=== PATIENT | male | born 1960 | race Caucasian/White ===

== ENCOUNTER 2025-03-11 09:40 | Outpatient (OUT) | payer MEDICARE, SELFPAY ==
--- OUTSIDE RECORDS SUMMARY | 2025-02-26 10:57 | XMS_ITS | Continuity of Care Document ---
Author Organization [facility] Address [address] [place] [address] Phone Care Team Providers Care Triage Register Nurse Name Role Phone Provider, Outside Primary Care Provider Ashley BainC Attending Provider Mike Hughes DO Primary Care Provider Care Teams Patient Care Team Team Status: Active Member Role Status Dates Mike Hughes DO Primary Care Provider Active Visit Care Team Team Status: Inactive Member Role Status Dates Outside Provider Primary Care Provider Active St art: January 07, 2025 End: January 07, 2025Macrina Fonseca ProviderActiveStart: January 07, 2025 End: January 07, 2025 Visit Care Team Team Status: Inactive Member Role Status Dates ALEJANDRO Fonseca Attending Provider Active Start: January 21, 2025 End: January 21, 2025Janell Tracy Care ProviderActiveStart: January 21, 2025 End: January 21, 2025 Visit Care Team Team Status: Inactive Member Role Status Dates Mike Hughes DO Primary Care Provider Active Start: February 03, 2025 End: February 03, 2025Macrina Fonseca ProviderActiveStart: February 03, 2025 End: February 03, 2025 Patient Care Team Team Status: Inactive Member Role Status Dates Mike Hughes DO Primary Care Provider Active Start: February 26, 2025 End: February 26, 2025Macrina Fonseca ProviderActiveStart: February 26, 2025 End: October 8th, 2025 Chief Complaint and Reason for Visit Chief Complaint Admit Date ref by Mike Hughes for VV w/ pain Aug ust 2024 12:06pm I83.813 January 21, 2025 10:53am to go over FF; FF done [place] [facility] February 03, 2025 9:44am sclero lt leg first February 26, 2025 2: 09pm Reason for Visit Admit Date Symptomatic varicose veins of both lower extremities January 07, 2025 12:06pm Telangiectasia January 07, 2025 12 :06pm Lower extremity edema February 03 9:44am Symptomatic varicose veins of both lower extremities February 03, 2025 9:44am Telangiectasia February 03, 2025 9:44am Venous insufficiency February 03 9:44am Allergies, Adverse Reactions, Alerts Allergen Type Severity Reaction Last Updated Verified Status amoxicillin Allergy Unknown Rash February 03, 2025 10:16am Yes Active contrast dy Allergy Unknown ckd January 07, 2025 11:37am No Active Social History Smoking Status Status Start Date End Date Date of Observa tion Never smoked tobacco (finding) January 07, 2025 11:37am Observation Status Observation Response Date of Response Legal Sex Male (finding) [facility] 1960 Problems Active Problems Medical Problem Onset Date Status Lower extremity edema Unknown Active Symptomatic varicose veins of both lower extremi ties Unknown Active Telangiectasia Unknown Active Venous insufficiency Unknown Active Medications Medication Status Dose Units Route Directions Qty Days St art Date Stop Date End Date Instructions Adherence Atorvastatin 20 mg tablet Active 20 MG PO Daily January 07, 2025 12:00amUnknownSertraline 100 mg osxpnnVywaiw920XXSJEjpqeNrrtbp 2024 12:00amUnknownLosartan-Hydrochlorothiazide 100-25 mg znypgjXzmpyk6GCY PODailyAugu2024 12:00amUnknownTamsulosin 0.4 mg capsuleActiveMGPOAugust 2024 12:00amUnknownAtenolol 50 mg kzaybmFwbfvn79ZFVCFvoyjIvmtmu 2024 12:00amUnknownAspirin 325 mg qpkkavWrodvdrvkuxi642ODDWMaxgu 6 hours as needed January 07, 2025 12:00amAugu2024 11:38amAspirin 81 mg xmkgqpAsokjr80EA PODailyAugust 2024 12:00amUnknownSildenafil 25 mg bnpvpdIiekss15JGXXMcrsm as neededAugust 2024 12:00amadminister 30 minutes to 4 hours before activityUnknownBethanechol Chloride 25 mg zckuphLfgqrr54QYQNVvvgq dailyAugust 2024 12:00amUnknown Procedures Procedure Date Performed Status US venous duplex LE BI January 21, 2025 10:54 am completed Relevant Diagnostic Tests and/or Laboratory Data Diagnostic Imaging Reports Author Erasmo Villa [facility] HospitalAuthoredSeptember 2024 8:51amReport Dictated Date/TimeDictated ByStatusRadiology ReportSept2024 8:51am [facility] [place] [address] Ultrasound Report Signed Patient: Curtis Owens MR#: [id number] : 1960 Acct:[id number] Age/Sex: 64 / M ADM Date: 5 Loc: Room: Type: [facility] Attending Dr: Ashley Suazo [employer]BI[employer] 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 Copies to: Ashley Suazo APRN~ BILATERAL LOWER EXTREMITY VENOUS DUPLEX INDICATION: Symptomatic varicose veins PROCEDURE: Color-flow duplex scanning is used to interrogate the deep venous system of the right and left lower extremities. The common femoral vein, femoral vein and popliteal vein show good compressibility with normal proximal and distal augmentation. The calf veins are compressible. US/US venous duplex LE BI IMPRESSION: NO EVIDENCE FOR DEEP VEIN THROMBOSIS OR PROXIMAL SUPERFICIAL THROMBOPHLEBITIS IN THE RIGHT OR LEFT LOWER EXTREMITY. Severe reflux of greater than 5 seconds was identified in the right lesser saphenous junction. Continuous flow was identified in the right lesser saphenous vein. Impression dictated by: Erasmo Villa MD,FACS,FSVS 01/23/2025 8:52 AM Dictation Location: [place] [address] Tech: Gemma Morejon Transcribed By: FELIBERTO 01/23/25 0852 Dictated By: Erasmo Villa MD 01/23/25 0851 Signed By: <Electronically signed by Erasmo Villa MD in OV> 01/23/25 0852 Vital Signs Vital Reading Result Reference Range Collection Date/Time Height 75 [in_i] January 07, 2025 11:32zmOonmef52.52 kgAugust 2024 11:40amBody Temperature 97.6 [degF]97.6-99.0August 2024 11:40amHeart Rate84 /ggo20-500HrzepaJanuary 07, 2025 11:40amRespiratory rate18 /nol64-67Qytpjg 19th, 2025 11:40amOxygen saturation by Pulse pohkfpmh57 %95-100gus2024 11:40amBP Gomueyul212 mm[Hg]100-140August 2024 11:40amBP Aredtuvkc27 mm[Hg]60-100August 2024 11:40amBMI (Body Mass Index)26.9 kg/n7Umjkhv 2024 11:40amBody Pmblvtukdvl13.1 [degF]97.6-99.0September 2024 10:16amHeart Rate48 /min 60-100Sept2024 10:16amOxygen saturation by Pulse ixysdsbn77 %95-100 February 03, 2025 10:16amBP Aebrjump331 mm[Hg]100-140September 2024 10:16amBP Gruxmrvox69 mm[Hg]60-100September 2024 10:16am Advance Directives Advance Directive Response Recorded Date/ Time Advance Directives No November 21 3:12pm Insurance Providers Guarantor Curtis Owens Address [address] [place] [phone] Info.Home Phone: Payer Policy Id Subscriber's Name Subscriber Id Effectiv e Date Expiration Date Medicare [id number] Curtis Owens [id number] [employer] MCR [id number] C [id number] [id number] C [id number] Encounters Encounter Location(s) Arrival/Admit Date Discharge/Depart Date Provider(s) Departed Physician/Prov ider Office Visit -[facility] January 07, 2025 12:06pm January 07, 2025 12:08pm Ashley Solis APRN Departed Clinical -Ultrasound [facility] January 21, 2025 10:53am January 21, 2025 10:54am Ashley Solis APRN Departed Physician/Prov ider Office Visit -[facility] February 03, 2025 9:44am February 03, 2025 10:36am Ashley Solis APRN Departed Physician/Prov ider Office Visit -[facility] February 26, 2025 2:09pm February 26, 2025 2:56pm Ashley Solis APRN Recent Diagnosis Onset Date Admit Date Symptomatic varicose veins o f both lower extremities Unknown January 07, 2025 12:06pm Telangiectasia Unknown January 07 12:06pm Lower extremity edema Unknown February 03, 2025 9:44am Symptomatic varicose veins o f both lower extremities Unknown February 03, 2025 9:44am Telangiectasia Unknown February 03, 2025 9:44am Venous insufficiency Unknown January 202024 9:44am Assessments Diagnosis Onset Date Resolution Status Admit Date Symptomatic varicose veins of both lower extremities acuteAugus2024 12:06pmTelangiectasiaacuteAugust 2024 12:06pmLower extremity edemaacuteSeptember 2024 9:44amSymptomatic varicose veins of both lower extremitiesacuteSept2024 9:44amTelangiectasiaacute February 03, 2025 9:44amVenous insufficiencyacuteSept2024 9:44am Plan of Treatment Author Ashley Solis [facility] 2024 12:11pmPatient complains of achiness, heaviness, leg fatigue, restless legs and worsening varicosities bilaterally, left greater than right. He has tried use of graded compression stockings for years with mild relief in his symptoms. He has noticed worsening varicosities and what sounds like a recent episode of thrombophlebitis in the left leg. We discussed venous disease and reviewed the venous handout page by page and addressed all his questions. Will start by obtaining a full functional duplex study to evaluate for any venous valvular incompetence and bring back to discuss those results as well as any treatment recommendations based on the studies. He understands the chronic and progressive nature of venous disease in general and the ongoing importance of conservative efforts with use of graded compression stockings, leg elevation, good skin care moisturizer therapy, weight management, and frequent activity and the overall management of venous disease. He verbalizes understanding of our discussion today and agrees with this plan. We measured in our office today to ensure properly fitting graded compression stockings. We will see him again after his full functional duplex study. Author Ashley Solis [facility] HospitalAuthoredSeptember 2024 4:20pmWe reviewed his full functional duplex studies which shows severe reflux of greater than 5 seconds identified in the right lesser saphenous vein with continuous flow. He continues with complains of achiness, heaviness, leg fatigue, restless legs and worsening varicosities bilaterally, left greater than right. He has tried use of graded compression stockings for years with mild relief in his symptoms. Varicosities have been worsening with episode of thrombophlebitis in the left leg. We once again discussed venous disease and reviewed the venous handout page by page and addressed all his questions. For this patient I would recommend Varithena treatment of the right lesser saphenous vein as well as additional foam sclerotherapy for the symptomatic varicosities in the left Calf. Goal of therapy would to be to control overall symptoms lessening his daily discomfort, aiding in edema relief, and preventing further episodes of thrombophlebitis, skin changes, and venous ulcerations in the future. We discussed the procedure, risk, benefits and I addressed all his questions. He wishes to proceed. We will submit for insurance approval and get him on the schedule in the near future beginning with the left lower extremity foam sclerotherapy of the symptomatic varicosities as this is his most symptomatic side. He understands the chronic and progressive nature of venous disease in general and the ongoing importance of conservative efforts with use of graded compression stockings, leg elevation, good skin care moisturizer therapy, weight management, and frequent activity and the overall management of venous disease. He verbalizes understanding of our discussion today and agrees with this plan. Future Tests Future scheduled test information is unavailable Pending Tests Pending diagnostic test information is unavailable Future Visits Future appointment information is unavailable Referrals to Other Providers Referral information is unavailable Future Procedures Future procedure information is unavailable Future Medications Future medication information is unavailable Patient Instructions Patient instructions are unavailable
--- OUTSIDE RECORDS SUMMARY | 2025-03-11 09:48 | XMS_ITS | Encounter Summary ---
Author Organization [facility] Address [id number] [address] [place] [address] Care Team Providers Care Import Coordination And Production Head Name Role Phone Mike Hughes Primary Care Provider + [phone] Reason for Visit * ReasonOnset DateCommentsMed Wueyhz1602/26/2025 Encounter Details DateTypeDepartmentCare Team (Latest Contact Info)Vvntfmmshox85/08/2025Refill [facility] - Family Medicine [address] [place] [address] Jenelle Millan CMA Social History Tobacco UseTypesPacks/DayYears UsedDateSmoking Tobacco: FormerCigarettes0.57 Smokeless Tobacco: Never Comments:Quit smoking age 23 Alcohol UseStandard Drinks/WeekCommentsYes0 (1 standard drink = 0.6 oz pure alcohol)ocasionallyAUDIT-CAnswerDate RecordedQ1: How often do you have a drink containing alcohol?2-4 times a month05/02/2024Q2: How many drinks containing alcohol do you have on a typical day when you are drinking?3 or Q3: How often do you have six or more drinks on one occasion?Jdcwrd2305/02/2024Overall Financial Resource Strain (CARDIA)AnswerDate RecordedHow hard is it for you to pay for the very basics like food, housing, medical care, and heating?Not hard at all11/14/2024PHQ-2AnswerDate RecordedTotal Ucpxy852Exercise Vital SignAnswerDate RecordedOn average, how many days per week do you engage in moderate to strenuous exercise (like a brisk walk)?7 days11/18/2024On average, how many minutes do you engage in exercise at this level?30 min11/18/2024PRAPARE - TransportationAnswerDate RecordedIn the past 12 months, has lack of transportation kept you from medical appointments or from getting medications?No 11/14/2024In the past 12 months, has lack of transportation kept you from meetings, work, or from getting things needed for daily living?No11/14/2024 Housing InstabilityAnswerDate RecordedAre you worried or concerned that in the next two months you may not have stable housing that you own, rent or stay in as a part of a household?No11/14/2024hildcareAnswerDate RecordedDo problems getting child nutrition manager make it difficult for you to work or study?No05/02/2024 EmploymentAnswerDate RecordedDo you need help finding a local career center and/or a training program?No05/02/2024Hunger ScreeningAnswerDate RecordedWithin the past 12 months we worried whether our food would run out before we got money to buy more.Never True11/18/2024Within the past 12 months the food we bought just didn't last and we didn't have money to get more.Never True11/18/2024 Purpose - LifeAnswerDate RecordedPurpose and direction in vmseLbxheib54/22/2021 Sex and Gender InformationValueDate RecordedSex Assigned at BirthNot on file Legal ZvbWvva4912/25/2014 11:32 AM EDTGender IdentityNot on fileSexual Orientation Not on filedocumented as of this encounter Plan of Treatment DateTypeDepartmentCare Team (Latest Contact Info)Pkhynfezxyn14/30/2025 9:30 AM EDTOffice Visit [facility] [address] [place] [phone] Mike Hughes DO [address], [place] [address] documented as of this encounter Visit Diagnoses Not on filedocumented in this encounter Additional Health Concerns AssessmentNoted TimePHQ-9 Depression Total Score: 8:51 AM EDTA Body Mass Index follow-up plan has been documented for the pwsaldp5011/18/2024 11:31 AM EDTdocumented as of this encounter Care Teams Team MemberRelationshipSpecialtyStart DateEnd Date Mike Hughes DO [address], [facility] [address] PCP - GeneralFamily Xrqlitdh77/12/24documented as of this encounter
--- OUTSIDE RECORDS SUMMARY | 2025-03-11 09:48 | XMS_ITS | Clinical Summary ---
Author Organization [facility] Address [address] [place] [phone] Phone Care Team Providers Care Immigration Guard Name Role Phone Unavailable Primary Care Provider Unavailabl e Social History Tobacco UseTypesPacks/DayYears UsedDateSmoking Tobacco: Never AssessedSex and Gender InformationValueDate RecordedSex Assigned at BirthNot on fileLegal Sex Male04/16/2022 3:03 AM ESTGender IdentityNot on fileSexual OrientationNot on file Plan of Treatment Not on file
--- OUTSIDE RECORDS SUMMARY | 2025-03-11 09:49 | XMS_ITS | Clinical Summary ---
Author Organization [employer] tem Address [facility] [place]-[id number] [address] [place] [address] Care Team Providers Care Paste Up Artist Name Role Phone FeMike souza Primary Care Provider + [phone] Allergies Active AllergyReactionsCriticalityNoted NeheZagmgtdlJticrgojbvhNufcVmb68/18/2022 Medications MedicationSigDispense QuantityRefillsLast FilledStart DateEnd DateStatus fluticasone propionate (FLONASE) 50 mcg/actuation nasal spray Administer 1 spray into each nostril as needed for rhinitis.Active therapeutic multivitamin (THERAGRAN) tablet Take 1 tablet by mouth in the morning.Active ofloxacin (FLOXIN) 0.3 % otic solution Administer into the left ear as needed.Active sildenafiL (VIAGRA) 25 mg tablet 4Active tamsulosin (FLOMAX) 0.4 mg capsule Take 1 capsule (0.4 mg total) by mouth nightly. 90 capsule 5Active losartan-hydroCHLOROthiazide (HYZAAR) 100-25 mg per tablet Take 1 tablet by mouth in the morning. 90 tablet 5Active atenoloL (TENORMIN) 50 mg tablet Take 1 tablet (50 mg total) by mouth daily with breakfast. 90 tablet 5Active bethanechol (URECHOLINE) 25 mg tablet Take 1 tablet (25 mg total) by mouth every 8 (eight) hours as needed for bladder spasms. 90 tablet 5Active atorvastatin (LIPITOR) 20 mg tablet TAKE 1 TABLET BY MOUTH IN THE MORNING 90 tablet 5Active sertraline (ZOLOFT) 100 mg tablet Take 1 tablet (100 mg total) by mouth in the morning. 30 tablet 5Active sertraline (ZOLOFT) 100 mg tablet Discontinued(Reorder) Active Problems ProblemNoted DateDiagnosed OxrzMfamiorpboabfxha24/02/0688Fpofdvvmoa21/12/2024 Recurrent major depression in partial fyacsanlx66/04/2023 Overview (05/02/2024): improved with sertraline Benign localized prostatic hyperplasia with lower urinary tract symptoms (LUTS) 01/30/2023eneralized anxiety hthxmybb76/11/2023Neurogenic ofvvlck1001/30/2023 Other male erectile rhstsvbtgti57/11/2023Chronic otitis media-Left04/08/2022 Chronic myringitis of left ear03/10/2022Mixed conductive and sensorineural hearing loss of left ear03/10/2022llergic /12/2016Seborrheic pokknqybtq51/12/2016Restless legs04/25/2016HypertensionAnxietyHyperlipidemia Resolved Problems ProblemNoted DateDiagnosed DateResolved DateObesity with body mass index 30 or qflzeas03 Encounters DateTypeDepartmentCare CewmWimscdspcms45/08/2025Refill [facility] [address] [place] [phone] Jenelle Millan CMA 02/04/2025Telephone [facility] [address] [place] [phone] Preeti Marie MD 01/21/2025Refill [facility] [address] [place] [address] Mike Hughes, 01/01/2025Orders Only [facility] [address] [place] [address] Mike Hughes, 01/01/2025Refill [facility] [address] [address] Eli Nielson CMA from Last 3 Months Immunizations ImmunizationAdministration DatesNext DueCOVID-19, mRNA, LNP-S, PF, 30mcg/0.3mL Dose08/04/2020,07/14/2020Influenza (IM) Preservative Free03/14/2024,03/21/2016 Influenza High Dose Preservative Free IM02/27/2020Influenza Split Preservative Free ID02/26/2018,01/24/2017Influenza, Injectable, Mdck, Preservative Free, Quad 06/24/2019Influenza, Injectable, Yuxpkhutpwtf24/14/2022Influenza, Injectable, quadrivalent (PF)02/14/2023,02/28/2020Influenza, Recombinant, Quadrivalent, Injectable, Qrvhvnx5002/28/2022,03/12/2021neumococcal Conjugate 20-valent 05/02/2024Tdap06/24/2019Zoster Vaccine Iqwgdwctthv56/15/2020,02/28/2020 Family History Medical HistoryRelationNameCommentsHeart diseaseMotherHypertensionMother Anesthesia problemsNeg HxRelationNameStatusCommentsMother Social History Tobacco UseTypesPacks/DayYears UsedDateSmoking Tobacco: FormerCigarettes0.57 Smokeless Tobacco: Never Tobacco Cessation:Counseling Given: Not Answered Comments:Quit smoking age 23 Alcohol UseStandard Drinks/WeekCommentsYes0 (1 standard drink = 0.6 oz pure alcohol)ocasionallyAUDIT-CAnswerDate RecordedQ1: How often do you have a drink containing alcohol?2-4 times a month05/02/2024Q2: How many drinks containing alcohol do you have on a typical day when you are drinking?3 or Q3: How often do you have six or more drinks on one occasion?Mrhdlh4905/02/2024Overall Financial Resource Strain (CARDIA)AnswerDate RecordedHow hard is it for you to pay for the very basics like food, housing, medical care, and heating?Not hard at all11/14/2024PHQ-2AnswerDate RecordedTotal Llggw155Exercise Vital SignAnswerDate RecordedOn average, how many days [...] of a household?No11/14/2024hildcareAnswerDate RecordedDo problems getting child watch attendant make it difficult for you to work [...] Purpose - LifeAnswerDate RecordedPurpose and direction in wwckNdoiiom66/22/2021 Sex and Gender InformationValueDate RecordedSex Assigned at BirthNot on file Legal EswYlrq7812/25/2014 11:32 AM EDTGender IdentityNot on fileSexual Orientation Not on file Last Filed Vital Signs Vital SignReadingTime TakenCommentsBlood Zumcnlju078/7207 11:40 AM EDT Kvaog6059 11:40 AM EFROpxqyepzmup04.4 ??C (97.6 ??F)12/05/2024 11:16 AM EDTRespiratory Jhjp8001/ 11:40 AM EDTOxygen Upovmsjlzq23%12/05/2024 11:40 AM EDTInhaled Oxygen Concentration--Xuyqrx56.5 kg (215 lb)12/05/2024 6:56 AM EDT Bzqopn786.5 cm (6' 3 )12/05/2024 6:56 AM EDTBody Mass Index26.8712/05/2024 6:56 AM EDT Plan of Treatment DateTypeDepartmentCare Team (Latest Contact Info)Jcmrntidsoc70/30/2025 9:30 AM EDTOffice Visit [facility] [address] [place] [address] Mike Hughes DO [address], [place] [address] Health MaintenanceDue DateLast DoneCommentsMedicare Annual Wellness Visit 1960bdominal Aortic Aneurysm (AAA) Tdbhjs9509/21/2023OVID-19 Vaccine ( season)/, 03/12/2021, 08/04/2020, Additional history existsInfluenza Kzuradd07/, 02/14/2023, 03/04/2022, Additional history existsAdult BMI Follow Up [facility] Cancer Screening 3 Year Bqujnqfyd98/30/2026Postponed from 09/21/2003 (Patient Refused)Depression Gbmjfosmz96Fall Risk Duurvqfen67dult BMI Wsdcztktj57/Tobacco Gusxowlmn20DTaP,Tdap and Td Vaccines (2 - Td or Tdap)Zoster (Shingles) Vaccine Irnwitebq91/15/2020, 02/28/2020 Medical Devices ImplantedTypeAreaManufacturerDevice IdentifierShelf Expiration DateModel / Serial / LotPlate Bn 1.3mm 0d Med Dflxn Prm Gorilla Prcs Gd Mtp Rt Rpl Special [id number] - [id number] Implanted:Qty: 1 on 12/05/2024 by [facility] First ToePARAGON 28 [id number] / / Prosthesis Oss 2x1.5mm 1.45mm [place] Ti Gomez Dist End Cup 2-2.5 - [id number] Implanted:Qty: 1 on 04/22/2022 by Quinn Jasso MD at [facility]ATIONProsthesisLeft: EarGRACE FQTIDQN1111/19/2026 671 / / [id number] Bn 28mm 3.5mm Cnn Mn-Mnstr St - [id number] Implanted:Qty: 1 on 12/05/2024 [facility]wRight: First ToePARAGON 28 [id number] / / Screw Bn 16mm 3.5mm Gorilla Ns R3con Non Lck Plt - [id number] Implanted:Qty: 2 on 12/05/2024 by [facility]wRight: First ToePARAGON 28 [id number] / / Screw Bn 14mm 3.5mm Gorilla Ns R3con Nonlock Plt Gorilla - [id number] Implanted:Qty: 1 on 12/05/2024 by Tommie oRse DPM at [facility]wRight: First ToePARAGON 28 [id number] / / Screw Bn 18mm 3.5mm Nonlock Plt Gorilla R3con Ns - [id number] Implanted:Qty: 2 on 12/05/2024 by [facility]PM at [facility]wRight: First ToePARAGON 28 [id number] / / Screw Bn 20mm 3.5mm Nonlock Plt Gorilla R3con Ns - [id number] Implanted:Qty: 1 on 12/05/2024 by Tommie Rose DPM at [facility]wRight: First ToePARAGON 28 [id number] / / Screw Bn 13mm 2mm Bite Mnstr St Ns - [id number] Implanted:Qty: 1 on 12/05/2024 by Tommie Rose DPM at [facility]: Second ToePARAGON 28 [id number] / / ExplantedTypeAreaManufacturerDevice IdentifierShelf Expiration DateModel / Serial / LotWire Fx Krsh 1.6mm 150mm 1 End Troc Tip Smth Rpl [id number] - [id number] Explanted:Qty: 2 on 12/05/2024 at [facility] ImplantRight: First ToePARAGON 28 [id number] / / Wire Fx Krsh 1.2mm 150mm 1 End Troc Tip Smth Rpl [id number] - [id number] Explanted:Qty: 2 on 12/05/2024 at [facility] ImplantRight: First ToePARAGON 28 [id number] / / Insurance Care Teams Team MemberRelationshipSpecialtyStart DateEnd Date Mike Hughes DO [address], [facility] [place] [address] [facility] Qdidpdow98/12/[facility]
--- OUTSIDE RECORDS SUMMARY | 2025-03-11 09:49 | XMS_ITS | Clinical Summary ---
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 Name Role Phone Mike Hughes MD Primary Care Provider [phone] Allergies Active AllergyReactionsCriticalityNoted DateCommentsAmoxicillinOther,RashLow 04/08/2022 Medications MedicationSigDispense QuantityRefillsLast FilledStart DateEnd DateStatus aspirin 325 MG EC tablet Take 325 mg by mouth every 6 (six) hours if neededActive fluticasone (Flonase) 50 MCG/ACT nasal spray 1 (one) time each day at the same timeActive sildenafil (Viagra) 25 MG tablet Indications:Erectile dysfunction, unspecified erectile dysfunction typeTake 1 tablet (25 mg) by mouth if needed for erectile dysfunction 10 tablet 1104Active atorvastatin (Lipitor) 20 MG tablet Indications:Mixed hyperlipidemiaTake 1 tablet (20 mg) by mouth Daily 90 tablet 4Active losartan-hydroCHLOROthiazide (Hyzaar) 100-12.5 MG tablet Indications:Primary hypertensionTake 1 tablet by mouth Daily 180 tablet 4Active sertraline (Zoloft) 100 MG tablet Indications:Recurrent major depression in partial remissionTake 1 tablet (100 mg) by mouth Daily 90 tablet 4Active atenolol (Tenormin) 50 MG tablet Indications:Primary hypertensionTake 1 tablet (50 mg) by mouth in the morning. 90 tablet 4Active bethanechol (Urecholine) 25 MG tablet 5Active tamsulosin (Flomax) 0.4 MG 24 hr capsule 5Active Active Problems ProblemNoted DateDiagnosed VomxLvqbdsl13/16/6605Snawewmaekolumtf63/02/2025 Hajubynnxmtwv21/24/0486Eguacdrzpk01/12/2024ecurrent major depression in partial blyeqmonx10/04/2023 Overview (02/22/2023): improved with sertraline Assessment & Plan (03/14/2024 10:09 PM EDT): Controlled on zoloft. Benign localized prostatic hyperplasia with lower urinary tract symptoms (LUTS) 01/30/2023hronic myringitis of left ear01/30/2023 Assessment & Plan (03/14/2024 10:08 PM EDT): Sees Dr Jasso. Generalized anxiety njzkahdg23/11/2023Infective otitis cxeffld7601/30/2023Mixed ysnvxilichrleg19/11/2023 Assessment & Plan (03/14/2024 10:09 PM EDT): Continue lipitor. Neurogenic dtrmkuf4301/30/20234386Gqljtky79/11/2023Other male erectile dysfunction 01/30/2023ilateral impacted wjdosbe7408/11/2022hronic otitis media03/10/2022 Mixed conductive and sensorineural hearing loss of left ear2Obesity (BMI 30.0-34.9)12/30/2019Body mass index (BMI) 30.0-30.9, adult06/24/2019Allergy to clkucmkznu72/12/2019Impacted rrldkxe0702/03/2017Allergic ypixaesa53/12/2016 Primary /12/2016 Overview (02/22/2023): well controlled on current regimen Assessment & Plan (03/14/2024 10:08 PM EDT): Controlled on hyzaar and tenormin. Family history of ischemic heart xvcjakv3605/02/2016Obesity with body mass index 30 or jggezvt0105/02/2016Seborrheic /12/2016Restless legs04/25/2016 Encounters DateTypeDepartmentCare YakpJwcffwrmxxa84/06/2025 1:10 PM EDTAncillary Procedure [facility] [address] [place] [address] 02/24/2025 1:00 PM EDTOffice Visit [facility] [address] [place] [address] Tommie Rose DPM S/P foot surgery (Primary Dx); Right foot pain02/24/2025amboo flowsheet [facility] [address] [place] [address] Tommie Rose DPM 02/24/20255095Qkbmba56/02/6104Cqcubt56/16/2025 8:30 AM EDTOffice Visit [facility] [address] [place] [address] Vesta Lozano MD Cholesteatoma of attic, left (Primary Dx); Left ear impacted ovdjzia4702/04/2025amboo flowsheet [facility] [address] [place] [address] Vesta Lozano MD 02/04/20256566Fgoagi44/26/2025 1:40 PM EDTAncillary Procedure [facility] [address] [place] [address] 01/14/2025 1:15 PM EDTOffice Visit [facility] [address] [place] [address] Tommie Rose DPM S/P foot surgery (Primary Dx); Right foot pain01/14/2025amboo flowsheet [facility] [address] [place] [address] Tommie Rose DPM 01/14/20252419Puofhq58/25/5159Hpkqzi32/21/2025Telephone [facility] [place] [facility] [address] [place] [address] Vesta Lozano MD mjgbcudzvqd33/13/2025 9:00 AM EDTOffice Visit [facility] [address] [place] [address] Tommie Rose, KARIN S/P foot surgery (Primary Dx); Right foot pain01/01/2025amboo flowsheet [facility] [address] [facility] [place] [address] Tommie Rose DPM 01/01/20253434Dxugjn31/12/2690Idocyc82/11/5795Sjlnlv86/30/2025 2:15 PM EDTOffice Visit [facility] [address] [place] [address] Tommie Rose, KARIN S/P foot surgery (Primary Dx); Right foot pain; Instability of right ankle joint; Difficulty /30/2025Bamboo flowsheet [facility] [address] [place] [address] Tommie Rose, DPM 12/18/20245887Niwasw28/29/2018Hqzqxg03/23/2025Travelfrom Last 3 Months Immunizations ImmunizationAdministration DatesNext DueInfluenza, High Dose Seasonal, Preservative Free02/27/2020Influenza, injectable, MDCK, preservative free, mpfoqrvlzfew86/03/2020Influenza, injectable, wzqiurbobumk89/14/2022Influenza, injectable, quadrivalent, preservative free02/14/2023,02/28/2020Influenza, recombinant, quadrivalent, injectable, preservative free02/28/2022,03/12/2021 Influenza, seasonal, injectable, preservative free03/14/2024,03/21/2016 Influenza, seasonal, intradermal, preservative free02/26/2018,01/24/2017Tdap 06/24/2019Zoster, Bsxyrbhvtoc36/15/2020,02/28/2020 Family History Medical HistoryRelationNameCommentsgluten sensitivityChildHeart diseaseFather JohnHeart diseaseFather's BrotherBabeCancerHalf-SiblingHeart diseaseMotherRita SjdpmociQiaeGbwvyvPjttwpnxKhuqjnbc8TfqauNrzcmeKpzhBxuuwriqVlevts's BrotherBabe AliveHalf-SiblingMotherRitaDeceasedSisterx3 Social History Tobacco UseTypesPacks/DayYears UsedDateSmoking Tobacco: NeverSmokeless Tobacco: Never Tobacco Cessation:Counseling Given: Not Answered Alcohol UseStandard Drinks/WeekCommentsYes2 (1 standard drink = 0.6 oz pure alcohol)Socially or partyHumiliation, Afraid, Rape, and Kick questionnaireAnswer Date RecordedWithin the last year, have you been afraid of your partner or ex-partner?No06/28/2023Within the last year, have you been humiliated or emotionally abused in other ways by your partner or ex-partner?No06/28/2023 Within the last year, have you been kicked, hit, slapped, or otherwise physically hurt by your partner or ex-partner?No06/28/2023Within the last year, have you been raped or forced to have any kind of sexual activity by your part ner or ex-partner?No06/28/2023Social Connection and Isolation PanelAnswerDate RecordedIn a typical week, how many times do you talk on the phone with family, friends, or neighbors?Twice a week06/28/2023How often do you get together with friends or relatives?Once a week06/28/2023How often do you attend jew or christianity services?More than 4 times per year06/28/2023ctive Member of Clubs or OrganizationsNot on file06/28/2023How often do you attend meetings of the clubs or organizations you belong to?1 to 4 times per year06/28/2023re you , , , , never , or living with a partner? 06/28/2023UDIT-CAnswerDate RecordedQ1: How often do you have a drink containing alcohol?2-4 times a month06/28/2023Q2: How many drinks containing alcohol do you have on a typical day when you are drinking?3 or Q3: How often do you have six or more drinks on one occasion?Less than aqvspva5106/28/2023Overall Financial Resource Strain (CARDIA)AnswerDate RecordedHow hard is it for you to pay for the very basics like food, housing, medical care, and heating?Not very hard06/28/2023HQ-2AnswerDate RecordedPatient Health Questionnaire-2 Score0 03/14/2024Finlifepoint hospitals [place] [facility] - Occupational Stress QuestionnaireAnswerDate RecordedDo you feel stress - tense, restless, nervous, or anxious, or unable to sleep at night because yourmind is troubled all the time - these days?Only a mhvdla9106/28/2023Exercise Vital SignAnswerDate Recorded On average, how many days per week do you engage in moderate to strenuous exercise (like a brisk walk)?1 day06/28/2023On average, how many minutes do you engage in exercise at this level?10 min06/28/2023Hunger Vital SignAnswerDate RecordedWithin the past 12 months, you worried that your food would run out before you got the money to buymore.Never true06/28/2023Within the past 12 months, the food you bought just didn't last and you didn't have money to get more.Never true06/28/2023RAPARE - TransportationAnswerDate RecordedIn the past 12 months, has lack of transportation kept you from medical appointments or from getting medications?No06/28/2023In the past 12 months, has lack of transportation kept you from meetings, work, or from getting things needed for daily living?No06/28/2023Housing Stability Vital SignAnswerDate RecordedIn the last 12 months, was there a time when you were not able to pay the mortgage or rent on time?No06/28/2023In the last 12 months, how many places have you lived?1 06/28/2023In the last 12 months, was there a time when you did not have a steady place to sleep or slept in ashelter (including now)?No06/28/2023Sex and Gender InformationValueDate RecordedSex Assigned at EmfjbRkfm97/30/2023 7:01 PM EDT Legal PwcLyyc0008/03/2022 7:35 PM EDTGender WdxackagYzae20/30/2023 7:01 PM EDT Sexual OrientationNot on file Last Filed Vital Signs Vital SignReadingTime TakenCommentsBlood Lihtlbfm167/8309 8:27 AM EDT Atbqp2474 8:27 AM LWMBbtulnaisfw15.1 ??C (96.9 ??F)02/22/2023 8:54 AM EDTRespiratory Vshv805506/29/2023 1:59 PM ESTOxygen Mhhiheisln77%03/14/2024 1:00 PM EDTInhaled Oxygen Concentration--Qvekhq11.3 kg (210 lb)02/24/2025 12:55 PM LSONesyno079.5 cm (6' 3 )02/24/2025 12:55 PM EDTBody Mass Index26.251 12:55 PM EDT Plan of Treatment DateTypeDepartmentCare Team (Latest Contact Info)Jwdjzptxbgc12/06/2026 1:15 PM ESTOffice Visit [facility] [address] [place] [address] Tommie Rose, DPArm[address] [place], [place] [phone] Goals GoalPatient Goal TypeAssociated ProblemsRecent ProgressPatient-Stated?Author Help patient manage antidepressant medication Care PlanPatient on antidepressant monitoring Mike Cooley Baseline PHQ-9 Care PlanBaseline PHQ-9Mike Bowden Procedures Procedure NamePriorityDate/TimeAssociated DiagnosisCommentsXR FOOT 3+ VIEWS NHDSNAegseqj76/06/2025 1:08 PM EDT S/P foot surgery Right foot pain XR FOOT 3+ VIEWS IQGTMCakxayb79/26/2025 1:36 PM EDT S/P foot surgery Right foot pain from Last 3 Months Results * XR foot 3+ views right (02/24/2025 1:08 PM EDT) Only the most recent of2 resultswithin the time period is included. Anatomical RegionLateralityModalityLower Extremities, FootRightRadiographic ImagingSpecimen (Source)Anatomical Location / LateralityCollection Method / VolumeCollection TimeReceived Time Narrative 02/24/2025 1:09 PM EDT Imaging Result: AP, medial oblique, lateral views are weight-bearing. ??Appears to be consolidation of the 1st MTP. ??Implants intact without lucency or back out. ??Joint space still visible at the 2nd PIPJ joint but without any further contracture. ??Implants intact within the 2nd metatarsal head. Authorizing ProviderResult TypeResult StatusAnthdelma Rose DPMIMG XR PROCEDURESFinal Result from Last 3 Months Additional Health Concerns Active ProblemsNoted DateDiagnosed DatePatient on antidepressant monitoring plan 02/26/2024aseline PHQ-91 Insurance Care Teams Team MemberRelationshipSpecialtyStart DateEnd Date Mike Hughes MD [address], [place] [address] [facility]11/11/24
--- NOTE | 2025-03-11 09:52 | CT_ITS ---
[address] [address] Patient Name: THA PENA MRN: [id number] date: 1960 Sex: M Assigned Patient Location: CT Current Patient Location: CT Accession/Order Number: [id number] Exam Date: 03/11/2025 10:05 Report Date: 03/11/2025 13:14 At the request of: NON-STAFF PHYSICIAN MD Procedure: CT int auditory canals w/o con CT int auditory canals w/o con 03/11/2025 10:10 AM SIGNS AND SYMPTOMS: ^Extensive Cholesteatoma Left Ear, congestion in left ear COMPARISON: None. TECHNIQUE: Using a multi-detector scanner, 0.5 x 0.3 mm axial scans of the temporal bone were acquired using a high-resolution bone technique. The scans were retrospectively targeted for right and left side, and subsequently reconstructed in the coronal and Sagittal plane, again targeting the right and left sides individually, as well as the entire skull base. CT was performed with one or more of the following dose reduction techniques: Automated exposure control, adjustment of the mA and/or kV according to patient size, or use of iterative reconstruction technique. FINDINGS: Right: The middle ear cleft is within normal limits. and the ossicles are within normal limits. The cochlea, vestibule, vestibular and cochlear aqueduct are within normal limits. The facial nerve canal is within normal limits. The semicircular canals are within normal limits. The internal auditory canal is within normal limits. The external auditory canal is within normal limits. There is a small right mastoid effusion. The carotid canal and jugular foramen are within normal limits. The temporomandibular joint is within normal limits. Left: Soft tissue attenuation is noted in the left middle ear along the epitympanum and mesotympanum with ossicular demineralization involving the malleus and incus. There is demineralization of the scutum. There is evidence of previous mastoidectomy with soft tissue attenuation in the mastoidectomy defect. There is opacification of the left ethmoid air cells. Bony demineralization noted along the tympanic segment of the left facial nerve canal. There is thinning of the tegmen involving both the mastoid and tympanic segments.. The cochlea, vestibule, vestibular and cochlear aqueduct are within normal limits. The facial nerve canal is within normal limits. The semicircular canals are within normal limits.. The internal auditory canal is within normal limits.. The external auditory canal and mastoid air cells are within normal limits. The carotid canal and jugular foramen are within normal limits. The temporomandibular joint is intact. Paranasal sinuses: There is mild polypoid mucosal thickening in the left maxillary sinus. Mild mucosal thickening is noted in the maxillary sinuses bilaterally. CT/CT int auditory canals w/o con IMPRESSION: Findings suggest a residual cholesteatoma in the epitympanum, mesotympanum, and mastoidectomy site with near complete opacification of the left mastoid air cells. There is bony demineralization of the malleus and incus, scutum, and the bony covering of the tympanic segment of the left facial nerve canal. There is demineralization of the tegmen involving both the mastoid and tympanic segments with significant thinning. There is a small right mastoid effusion. The temporal bone structures are otherwise within normal limits. Impression dictated by: Hernesto Euceda M.D. 03/11/2025 1:14 PM Dictation Location: [place] [address] Electronically authenticated by: [id number] Y Date: 03/11/2025 13:14
== END 2025-03-11 09:41 | disposition home or self-care (01) ==
LOC: CT 09:45
PROVIDERS: PCP Family Medicine
DX: H71.02 Cholesteatoma of attic, left ear (principal)
CPT/HCPCS: 70480